=== PATIENT | male | born 1960 | race Caucasian/White ===

== ENCOUNTER 2025-05-16 03:08 | Emergency (ER) | payer OTHER ==
[2025-05-16] MEDS: Ketorolac 30 MG/ML SDV IM ONE (04:19)
== END 2025-05-16 06:21 | disposition home or self-care (01) ==
LOC: JD.ED 03:08
DX: M25.561 Pain in right knee (principal); Z79.899 Other long term (current) drug therapy
CPT/HCPCS: 73564; 96372; 99283; J1885